=== PATIENT | male | born 1990 | race Caucasian/White ===

== ENCOUNTER 2017-01-20 16:00 | Emergency (ER) | payer BC ==
[2017-01-20] MEDS ORDERED: SODIUM CHLORIDE 0.9% 1,000 ML IV ONE (16:07)
[2017-01-20] MEDS ORDERED: ceFAZolin 1,000 MG in DEXTROSE/WATER 1 50ML.BAG IVPB STA (16:08)
[2017-01-20 16:09] LABS: Glucose,Whole Blood 113 mg/dL (75-99)
[2017-01-20] MEDS ORDERED: HYDROmorphone 1 MG/ML 1 ML SYRINGE IM STA (16:09)
[2017-01-20 16:18] LABS: Basophils % (A) 0 %; CH 32.5; CHCM 35.4; Eosinophils # (A) 0.1 k/uL (0-0.7); Eosinophils % (A) 1 %; HCT 43.8 % (39.0-53.0); HGB 15.3 gm/dL (13.0-17.5); Luc # (Auto) 0.11; Luc % (Auto) 1; Lymphocytes # (A) 1.7 k/uL (1.0-4.8); Lymphocytes % (A) 22 %; MCH 32.1 pg (25.0-35.0); MCHC 34.9 g/dL (31.0-37.0); MCV 92.2 fL (80.0-100.0); Mean Platelet Volume 7.1; Monocytes # (A) 0.4 k/uL (0-1.0); Monocytes % (A) 5 %; Neutrophils # (A) 5.6 k/uL (1.3-7.7); Neutrophils % (A) 70 %; RBC 4.75 m/uL (4.30-5.90); WBC (Perox) 7.49
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
--- NOTE | 2017-01-20 16:26 | XR ---
EXAMINATION TYPE: XR chest 1V portable DATE OF EXAM: 01/20/2017 COMPARISON: NONE INDICATION: Pain TECHNIQUE: Single frontal view of the chest is obtained. FINDINGS: The heart size is normal. The pulmonary vasculature is normal. The lungs are clear. No pneumothorax is evident. No displaced rib fractures are evident. EKG leads overlie the chest. IMPRESSION: 1. No acute pulmonary process.
[2017-01-20] MEDS: fentaNYL (PF) 50 MCG/ML 2 ML AMP IVP STA ×2 (16:27→17:03)
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
[2017-01-20 16:28] LABS: ALT 32 U/L (21-72); AST 33 U/L (17-59); Alcohol <10 mg/dL; Alkaline Phosphatase 66 U/L (38-126); Amylase 91 U/L (30-110); Anion Gap 9 mmol/L; Blood Urea Nitrogen 24 mg/dL (9-20); Calcium 9.6 mg/dL (8.4-10.2); Carbon Dioxide 26 mmol/L (22-30); Chloride 106 mmol/L (98-107); Glucose 117 mg/dL (74-99); Non-African American GFR(MDRD) >60 (>60 ml/min/1.73 sqM); Potassium 4.2 mmol/L (3.5-5.1); Sodium 141 mmol/L (137-145); Total Bilirubin 0.8 mg/dL (0.2-1.3)
[2017-01-20 16:31] LABS: Creatine Kinase 531 U/L (55-170)
[2017-01-20 16:32] LABS: INR 1.1 (<1.1); Prothrombin Time 10.8 sec (9.0-12.0)
[2017-01-20 16:43] LABS: Troponin I <0.012 ng/mL (0.000-0.034)
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
[2017-01-20 16:54] LABS: Creatine Kinase MB 2.9 ng/mL (0.0-2.4)
== END 2017-01-20 17:17 | disposition short-term general hospital (02) ==
LOC: EC 16:00
DX: S82.301B Unspecified fracture of lower end of right tibia, initial encounter for open fracture type I or II (principal); S82.831B Other fracture of upper and lower end of right fibula, initial encounter for open fracture type I or II; V28.4XXA Motorcycle driver injured in noncollision transport accident in traffic accident, initial encounter; Y92.410 Unspecified street and highway as the place of occurrence of the external cause
CPT/HCPCS: 99285; 29515; 96365; 96375; 96372; 36415; 86900; 86901; 80053; 82150; 82550; 82553; 83690; 84484; 85025; 85610; 85730; 86850; 80320; 71010; 72170; 73600; J3010; J1170; J0690